=== PATIENT | female | born 1995 | race Caucasian/White ===

== ENCOUNTER 2017-04-02 20:54 | Emergency (ER) | payer OTHER ==
[2017-04-02 21:08] VITALS: BP 116/66; PULSE 71; TEMP 97.9; BMI 23.0
[2017-04-02] MEDS ORDERED: SODIUM CHLORIDE 1,000 ML IV STA (22:06)
--- NOTE | 2017-04-02 22:15 | PDOC ---
History of Present Illness - General Chief Complaint: Syncope/Near Syncope Stated Complaint: INJURY Time Seen by Provider: 04/02/17 21:46 History Source: Patient, Spouse Exam Limitations: No Limitations - History of Present Illness Initial Comments: 04/02/17 22:10 21yo Female patient with no significant past medical history presents to ED with c/o syncope w/ LOC. Patient states she had not been feeling well today, under a lot of stress, newly , states she walked into bathroom and does not remember anything after. states he was in another room and went to check on and noticed her lying on bathroom floor unconscious. He states shaking her shoulder for approximately 1 min and patient came to, but was drowsy, confused, disoriented and c/o h/a. states she was able to answer some questions correctly. Associated nausea. Denies any other complaints at this time. LNMP: March 25. Presenting Symptoms: Syncope Timing/Duration: denies: constant, getting worse, changing over time, intermittent, resolved prior to arrival, gone now, other Severity/Quality: reports: mild. denies: moderate, severe, aching, burning, dull, ingestion, pressure, sharp, stabbing, tearing, tightness, other Location: reports: other (Headache). denies: substernal, central, epigastric, shoulder, back, abdomen Chest Pain Radiation: denies: no radiation, jaw, arms, neck, shoulders, back, sternal notch, epigastric, other Activities at Onset: reports: no specific activity Prior Chest Pain/Cardiac Workup: denies: No prior chest pain, No prior cardiac workup, Non-cardiac, Angina, Cardiac Cath, Cardiolye Scan, Echocardiography, Heart Attack, Pulmonary Embolism, Stress Test, Thallium Scan, Other Modifying Factors: worse with: antacids, breathing, coughing, defecating, eating , exercise, lying down, morphine, movement, nitroglycerin, oxygen, palpation, rest, other Aspirin Received prior to arrival (Core Measure): No: no aspirin today, unknown , 81 mg x 1, 81 mg x 2, 81 mg x 3, 81 mg x 4, 325 mg x 1, provided at home, provided by EMS, provided by ED ASA Contraindications (Core Measure): No: Allergy, Other, Active Blding w/i 24 hrs., Plavix, Receiving Warfarin Past History - Travel Traveled outside of the country in the last 30 days: No Close contact w/someone who was outside of country & ill: No - Past Medical History Allergies/Adverse Reactions: Allergies Allergy/AdvReac Type Severity Reaction Status Date / Time No Known Allergies Allergy Verified 04/02/17 23:52 Home Medications: Ambulatory Orders NK [No Known Home Medication] 04/02/17 Other medical history: denies - Surgical History Appendectomy: Yes - Psycho/Social/Smoking Cessation Hx Suicidal Ideation: No Smoking History: Never smoked Cardiac Specific PMH - Complaint Specific PMHX Abdominal Aortic Aneurysm: No Angina: No Cardiac Arrhythmia: No Cardiac Stent: No GERD: No Myocardial Infarction: No Pacemaker: No Pulmonary Embolus: No Valvular Heart Disease: No Peripheral Vascular Disease: No Review of Systems - Review of Systems Able to Perform ROS?: Yes Is the patient limited Zambian proficient: No Constitutional: No: Chills, Fever HEENTM: No: Blurred Vision, Double Vision Respiratory: No: Cough, Orthopnea, Shortness of Breath, Stridor, Wheezing Cardiac (ROS): Yes: Syncope. No: Chest Pain, Lightheadedness, Palpitations, Chest Tightness ABD/GI: Yes: Nausea, Other (Abdominal Discomfort). No: Poor Appetite, Poor Fluid Intake, Vomiting, Abdominal cramping : No: Burning, Dysuria, Flank Pain, Hematuria Musculoskeletal: No: Back Pain, Neck Pain Integumentary: No: Dryness, Erythema, Rash Neurological: Yes: Headache, Unsteady Gait. No: Tingling, Tremors, Weakness, Dizziness Psychiatric: Yes: Stressors All Other Systems: Reviewed and Negative *Physical Exam - Vital Signs Last Vital Signs Temp Pulse Resp BP Pulse Ox 97.9 F 71 18 116/66 99 04/02/17 21:05 04/02/17 21:05 04/02/17 21:05 04/02/17 21:05 04/02/17 21:51 - Physical Exam General Appearance: Yes: Nourished, Appropriately Dressed. No: Apparent Distress, Mild Distress, Moderate Distress, Severe Distress HEENT: positive: EOMI, NASRIN, Normal ENT Inspection, Normal Voice, Symmetrical, TMs Normal, Pharynx Normal. negative: Pharyngeal Erythema, Tonsillar Exudate, Tonsillar Erythema, Nasal Congestion, Rhinorrhea, TM Bulging, TM Dull, TM Erythema Neck: positive: Trachea midline, Normal Thyroid, Supple. negative: Lymphadenopathy (R), Lymphadenopathy (L), Tender lateral, Tender midline Respiratory/Chest: positive: Lungs Clear, Normal Breath Sounds. negative: Chest Tender, Respiratory Distress, Accessory Muscle Use, Labored Respiration, Rapid RR, Decreased Breath Sounds, Paradoxal Breathing, Rhonchi, Stridor, Wheezing Cardiovascular: positive: Regular Rhythm, Regular Rate. negative: Edema, Tachycardia Gastrointestinal/Abdominal: positive: Normal Bowel Sounds, Soft. negative: Distended, Guarding, Rebound, Tenderness Musculoskeletal: positive: Normal Inspection. negative: CVA Tenderness Extremity: positive: Normal Capillary Refill, Normal Inspection, Normal Range of Motion. negative: Pedal Edema, Swelling, Calf Tenderness Integumentary: positive: Normal Color, Dry, Warm. negative: Erythema, Cold, Clammy, Rash, Swelling Neurologic: positive: auctioneer art II-XII NML intact, Fully Oriented, Alert, Normal Mood/ Affect, Normal Response, Motor Strength 5/5, Finger to Nose. negative: Confused , Disoriented ED Treatment Course - LABORATORY CBC & Chemistry Diagram: 04/02/17 22:47 04/02/17 22:47 - ADDITIONAL ORDERS Additional order review: Laboratory Results 04/02/17 04/02/17 23:58 22:47 Sodium 139 Potassium 4.1 Chloride 103 Carbon Dioxide 26 Anion Gap 10 BUN 5 L Creatinine 0.4 L Creat Clearance w eGFR > 60 Random Glucose 81 Calcium 8.9 Total Bilirubin 0.8 AST 14 L ALT 16 Alkaline Phosphatase 83 Total Protein 7.8 Albumin 4.3 Total Amylase 49 Lipase 93 Urine Color Yellow Urine Appearance Clear Urine pH 5.0 Urine Protein Negative Urine Glucose (UA) Negative Urine Ketones 2+ H Urine Blood Negative Urine Nitrite Negative Urine Bilirubin Negative Urine Urobilinogen Negative Ur Leukocyte Esterase Negative Urine HCG, Qual Negative 04/02/17 22:47 RBC 4.29 MCV 87.8 MCHC 34.0 RDW 13.1 MPV 9.2 Neutrophils % 57.8 Lymphocytes % 35.4 Monocytes % 5.0 Eosinophils % 1.2 Basophils % 0.6 - RADIOLOGY Radiology Studies Ordered: Category Date Time Status CERVICAL SPINE CT W/O CONTR [CT] Stat CT Scan 04/03/17 01:[address] WITHOUT CONTRAST [CT] Stat CT Scan 04/03/17 01:01 Taken CHEST PA & LAT [RAD] Stat Radiology 04/03/17 01:00 Taken - Medications Given in the ED: ED Medications Discontinued Medications Generic Name Dose Route Start Last Admin Trade Name Oral PRN Reason Stop Dose Admin Sodium Chloride 1,000 mls @ 1,000 mls/hr 04/02/17 22:06 04/02/17 22:13 Normal Saline - IV 04/02/17 23:05 1,000 mls/hr ASDIR STA Administration *DC/Admit/Observation/Transfer Diagnosis at time of Disposition: Injury of head Qualifiers: Encounter type: initial encounter Qualified Code(s): S09.90XA - Unspecified injury of head, initial encounter - Discharge Dispostion Disposition: HOME Condition at time of disposition: Improved Admit: No - Patient Instructions Printed Discharge Instructions: DI for Syncope in Adults (Fainting), DI for Closed Head Injury Additional Instructions: FOLLOW UP WITH YOUR PRIMARY CARE PROVIDER THIS WEEK FOR FURTHER EVALUATION. TYLENOL OR MOTRIN FOR PAIN NEEDED. RETURN IF SYMPTOMS WORSEN OR ANY CONCERN FOR FURTHER EVALUATION. Print Language: LUXEMBOURGISH - Post Discharge Activity Work/School Note: Back to Work
[2017-04-02 22:53] LABS: BASOPHIL 0.6 % (0-2.0); EOSINOPHIL 1.2 % (0-4.5); MCH 29.8 pg (25.7-33.7); MEAN CELL VOLUME 87.8 fl (80-96); MEAN PLT VOLUME 9.2 fl (7.5-11.1); NEUTROPHILS 57.8 % (42.8-82.8); PLATELET COUNT 303 K/MM3 (134-434); RDW 13.1 % (11.6-15.6); WHITE BLOOD COUNT 8.5 K/mm3 (4.0-10.0)
--- NOTE | 2017-04-02 23:08 | PDOC ---
*Physical Exam - Vital Signs Last Vital Signs Temp Pulse Resp BP Pulse Ox 97.9 F 71 18 116/66 100 04/02/17 21:05 04/02/17 21:05 04/02/17 21:05 04/02/17 21:05 04/02/17 21:05 ED Treatment Course - LABORATORY CBC & Chemistry Diagram: 04/02/17 22:47 04/02/17 22:47 - ADDITIONAL ORDERS Additional order review: 04/02/17 22:47 RBC 4.29 MCV 87.8 MCHC 34.0 RDW 13.1 MPV 9.2 Neutrophils % 57.8 Lymphocytes % 35.4 Monocytes % 5.0 Eosinophils % 1.2 Basophils % 0.6 - Medications Given in the ED: ED Medications Discontinued Medications Generic Name Dose Route Start Last Admin Trade Name Freq PRN Reason Stop Dose Admin Sodium Chloride 1,000 mls @ 1,000 mls/hr 04/02/17 22:06 04/02/17 22:13 Normal Saline - IV 04/02/17 23:05 1,000 mls/hr ASDIR STA Administration Medical Decision Making - Medical Decision Making 04/02/17 23:08 agree with care from DEANA Amador *DC/Admit/Observation/Transfer Diagnosis at time of Disposition: Head injury - Discharge Dispostion Disposition: HOME Condition at time of disposition: Improved - Referrals Referrals: Eric Prater MD [Primary Care Provider] - - Patient Instructions Printed Discharge Instructions: DI for Syncope in Adults (Fainting), DI for Closed Head Injury Additional Instructions: FOLLOW UP WITH YOUR PRIMARY CARE PROVIDER THIS WEEK FOR FURTHER EVALUATION. TYLENOL OR MOTRIN FOR PAIN NEEDED. RETURN IF SYMPTOMS WORSEN OR ANY CONCERN FOR FURTHER EVALUATION. Print Language: SUDANESE - Post Discharge Activity Work/School Note: Back to Work
[2017-04-02 23:18] LABS: ALBUMIN 4.3 g/dl (3.4-5.0); AMYLASE 49 U/L (25-115); ANION GAP 10 (8-16); CALCIUM 8.9 mg/dL (8.5-10.1); CO2 26 mmol/L (21-32); CREATININE 0.4 mg/dL (0.55-1.02); GLUCOSE,RANDOM 81 mg/dL (74-106); SGOT/AST 14 U/L (15-37); SGPT/ALT 16 U/L (12-78)
[2017-04-02 23:19] LABS: ALK PHOS 83 U/L (45-117); BILIRUBIN,TOTAL 0.8 mg/dL (0.2-1.0); TOT PROT 7.8 g/dl (6.4-8.2)
[2017-04-03 00:25] LABS: URINE APPEARANCE CLEAR; URINE BILIRUBIN NEGATIVE (NEGATIVE); URINE BLOOD NEGATIVE (NEGATIVE); URINE COLOR YELLOW; URINE GLUCOSE (UA) NEGATIVE (NEGATIVE); URINE KETONE 2+ (NEGATIVE); URINE LEUK ESTERASE NEGATIVE (NEGATIVE); URINE NITRITE NEGATIVE (NEGATIVE); URINE PROTEIN NEGATIVE (NEGATIVE); URINE UROBILINOGEN NEGATIVE E.U./dl (0.2-1.0)
[2017-04-03 03:26] LABS: THYROID STIMULATING HORMONE 1.88 uIU/ml (0.358-3.74)
--- NOTE | 2017-04-03 11:22 | EKG ---
Test Reason : Blood Pressure : / mmHG Vent. Rate : 072 BPM Atrial Rate : 072 BPM P-R Int : 150 ms QRS Dur : 076 ms QT Int : 374 ms P-R-T Axes : 052 064 037 degrees QTc Int : 409 ms SINUS RHYTHM WITH MARKED SINUS ARRHYTHMIA OTHERWISE NORMAL ECG NO PREVIOUS ECGS AVAILABLE Confirmed by SIRISHA CURZ, LAURA ([id number]) on 04/03/2017 11:21:47 AM Referred By: Confirmed By:LAURA GRIMM MD
== END 2017-04-03 04:02 | disposition home or self-care (01) ==
LOC: JER 20:54
PROC: 3E0337Z Introduction of Electrolytic and Water Balance Substance into Peripheral Vein, Percutaneous Approach (ICD-10-PCS; principal; 2017-04-02)
DX: R55 Syncope and collapse (principal); S09.90XA Unspecified injury of head, initial encounter; W18.39XA Other fall on same level, initial encounter; Y93.89 Activity, other specified; Y92.002 Bathroom of unspecified non-institutional (private) residence as the place of occurrence of the external cause
CPT/HCPCS: 36415; 70450-TC; 71020-TC; 72125-TC; 80053; 81003; 82150; 83690; 84443; 84703; 85025; 93005; 93010; 99283-25

== ENCOUNTER 2017-07-11 15:45 | Emergency (ER) | payer OTHER ==
[2017-07-11 15:50] VITALS: BMI 22.6
--- NOTE | 2017-07-11 16:50 | PDOC ---
History of Present Illness - General Chief Complaint: Vaginal Bleeding Stated Complaint: ABD PAIN, BLEEDING (8 WKS ) Time Seen by Provider: 07/11/17 16:11 History Source: Patient Exam Limitations: No Limitations - History of Present Illness Travel History: No Initial Comments: 07/11/17 16:44 21 year-old female presents to the ED with complaints of pressure with cramping for the past 2 weeks. Patient states has also started with vaginal spotting since yesterday accompanied with small clots here in the ER. Patient states went to see her FINANCIAL RESERVE CLERK Dr. Emmanuel last week with told her that there was a gestational sac with no heart rate. Patient states had blood work done but unsure beta hCG. Patient has no other complaints including dysuria, recent injury, or radiation of pain. Timing/Duration: reports: constant Quality: reports: mild, cramping Abdominal Pain Onset Location: reports: suprapubic Pain Radiation: reports: no radiation Activities at Onset: reports: none Aggravating Factors: improves with: None Alleviating Factors: improves with: None Past History - Travel Traveled outside of the country in the last 30 days: No - Past Medical History Allergies/Adverse Reactions: Allergies Allergy/AdvReac Type Severity Reaction Status Date / Time No Known Allergies Allergy Verified 07/13/17 10:17 Home Medications: Ambulatory Orders NK [No Known Home Medication] 04/02/17 Other medical history: none - Surgical History Appendectomy: Yes - Reproductive History Is Patient Now?: Yes (#): 1 Para: 0 Therapeutic (s) & number: No Spontaneous : 0 - Suicide/Smoking/Psychosocial Hx Smoking History: Never smoked Information on smoking cessation initiated: No Hx Alcohol Use: No Drug/Substance Use Hx: No Substance Use Type: None Abd/GI Specific PMHX - Complaint Specific PMHX GERD: No Review of Systems - Review of Systems Able to Perform ROS?: No Constitutional: No: Symptoms Reported HEENTM: No: Symptoms Reported Respiratory: No: Symptoms reported Cardiac (ROS): No: Symptoms Reported ABD/GI: Yes: Abdominal cramping : Yes: Discharge (vag bleeding) Musculoskeletal: No: Symptoms Reported Integumentary: No: Symptoms Reported Neurological: No: Symptoms reported Hematologic/Lymphatic: No: Symptoms Reported *Physical Exam - Vital Signs Last Vital Signs Temp Pulse Resp BP Pulse Ox 97.6 F 71 18 127/67 100 07/11/17 15:48 07/11/17 15:48 07/11/17 15:48 07/11/17 15:48 07/11/17 15:48 - Physical Exam General Appearance: Yes: Nourished, Appropriately Dressed. No: Apparent Distress HEENT: negative: Pale Conjunctivae Neck: positive: Supple Respiratory/Chest: positive: Lungs Clear, Normal Breath Sounds. negative: Respiratory Distress, Accessory Muscle Use Cardiovascular: positive: Regular Rhythm, Regular Rate. negative: Murmur Female Pelvic Exam: positive: cervical os closed, vaginal bleeding (dark red with no clots). negative: normal adnexa Gastrointestinal/Abdominal: positive: Soft, Tenderness (mid suprapubic) Extremity: positive: Normal Capillary Refill. negative: Pedal Edema Integumentary: positive: Normal Color, Warm, Moist Neurologic: positive: Motor Strength 5/5 (ambulatory) ED Treatment Course - LABORATORY CBC & Chemistry Diagram: 07/11/17 16:29 07/11/17 16:29 - RADIOLOGY Radiology Studies Ordered: Category Date Time Status <14WKS US [US] Stat Ultrasound 07/11/17 16:34 Ordered Medical Decision Making - Medical Decision Making 07/11/17 16:53 Pt with vag bleeding with lower abdominal pain. Pt approx 8 wks . Pt had u/s last week with gest sac by Dr. Emmanuel. Pt on exam had dark red vaginal bleeding Pt ordered for labs, urine, and ultrasound. 07/11/17 18:01 Laboratory Tests 07/11/17 07/11/17 07/11/17 16:29 16:29 16:29 WBC 9.0 Hgb 13.5 Hct 39.7 Neutrophils % 68.4 Sodium 137 Potassium 4.1 Chloride 102 Carbon Dioxide 24 Anion Gap 11 BUN 6 L Creatinine 0.4 L Random Glucose 77 Calcium 8.7 Total Bilirubin 0.6 D AST 32 D ALT 44 D Alkaline Phosphatase 78 Total Protein 7.8 Albumin 4.1 Beta HCG, Quant 4463.1 Urine Blood 1+ H Urine Nitrite Negative Ur Leukocyte Esterase Pending Urine WBC 1 07/11/17 18:44 Laboratory Tests 07/11/17 16:29 Blood Type A POSITIVE Antibody Screen Negative *DC/Admit/Observation/Transfer Diagnosis at time of Disposition: Threatened in first trimester - Discharge Dispostion Disposition: HOME Condition at time of disposition: Stable - Patient Instructions Printed Discharge Instructions: DI for Threatened , DI for Vaginal Bleeding During Additional Instructions: As discussed, you MUST return to the emergency room or see Dr. Emmanuel in 48 HOURS for a repeat blood test to ensure that your is progressing normally. If you develop any increased bleeding, worsening pain, palpitations, lightheadedness, weakness, fever, or any new or worsening symptoms, please return to the ER.
[2017-07-11 16:55] LABS: BASOPHIL 0.6 % (0-2.0); EOSINOPHIL 1.5 % (0-4.5); MCHC 34.1 g/dl (32.0-36.0); MEAN PLT VOLUME 9.4 fl (7.5-11.1); NEUTROPHILS 68.4 % (42.8-82.8); PLATELET COUNT 277 K/MM3 (134-434); RDW 13.1 % (11.6-15.6)
[2017-07-11 16:59] LABS: URINE APPEARANCE CLEAR; URINE BILIRUBIN NEGATIVE (NEGATIVE); URINE BLOOD 1+ (NEGATIVE); URINE COLOR STRAW; URINE GLUCOSE (UA) NEGATIVE (NEGATIVE); URINE KETONE NEGATIVE (NEGATIVE); URINE NITRITE NEGATIVE (NEGATIVE); URINE PROTEIN NEGATIVE (NEGATIVE); URINE UROBILINOGEN NEGATIVE mg/dL (0.2-1.0)
[2017-07-11 17:21] LABS: ALBUMIN 4.1 g/dl (3.4-5.0); ANION GAP 11 (8-16); BILIRUBIN,TOTAL 0.6 mg/dL (0.2-1.0); CALCIUM 8.7 mg/dL (8.5-10.1); CO2 24 mmol/L (21-32); CREATININE 0.4 mg/dL (0.55-1.02); GLUCOSE,RANDOM 77 mg/dL (74-106); SGPT/ALT 44 U/L (12-78); TOT PROT 7.8 g/dl (6.4-8.2)
[2017-07-11 17:37] LABS: ALK PHOS 78 U/L (45-117)
[2017-07-11 17:39] LABS: SGOT/AST 32 U/L (15-37)
[2017-07-11 17:45] LABS: URINE BACTERIA MODERATE /hpf (NONE SEEN); URINE MUCUS RARE; URINE RBC <1 /hpf (0-3); URINE WBC 1 /hpf (3-5)
[2017-07-11 19:03] LABS: URINE LEUK ESTERASE Negative (NEGATIVE)
--- NOTE | 2017-07-11 19:29 | PDOC ---
*Physical Exam - Vital Signs Last Vital Signs Temp Pulse Resp BP Pulse Ox 97.6 F 71 18 127/67 100 07/11/17 15:48 07/11/17 15:48 07/11/17 15:48 07/11/17 15:48 07/11/17 15:48 - Physical Exam Comments: 07/11/17 19:25 Sign out received by outgoing ER provider DEANA Carpio. Ancillary studies reviewed. Awaiting TV US. Ultrasound results positive for IUP approximately 5 weeks with no pole visualized. Beta hCG correlates with approximate age of IUP on US. Patient blood type A+, no indication for Rhogam. Will discharge with close w/ OB. Strict instructions given to patient to return in 48 hours for repeat beta; patient verbalized understanding and agrees to plan. ED Treatment Course - LABORATORY CBC & Chemistry Diagram: 07/11/17 16:29 07/11/17 16:29 - ADDITIONAL ORDERS Additional order review: Laboratory Results 07/11/17 07/11/17 07/11/17 16:29 16:29 16:29 Sodium 137 Potassium 4.1 Chloride 102 Carbon Dioxide 24 Anion Gap 11 BUN 6 L Creatinine 0.4 L Creat Clearance w eGFR > 60 Random Glucose 77 Calcium 8.7 Total Bilirubin 0.6 D AST 32 D ALT 44 D Alkaline Phosphatase 78 Total Protein 7.8 Albumin 4.1 Beta HCG, Quant 4463.1 Urine Color Straw Urine Appearance Clear Urine pH 7.0 D Urine Protein Negative Urine Glucose (UA) Negative Urine Ketones Negative Urine Blood 1+ H Urine Nitrite Negative Urine Bilirubin Negative Urine Urobilinogen Negative Urine RBC <1 Urine WBC 1 Ur Epithelial Cells Rare Urine Bacteria Moderate Urine Mucus Rare Blood Type A POSITIVE Antibody Screen Negative 07/11/17 16:29 RBC 4.51 MCV 88.0 MCHC 34.1 RDW 13.1 MPV 9.4 Neutrophils % 68.4 Lymphocytes % 23.7 D Monocytes % 5.8 Eosinophils % 1.5 Basophils % 0.6 *DC/Admit/Observation/Transfer Diagnosis at time of Disposition: Threatened in first trimester - Discharge Dispostion Disposition: HOME Condition at time of disposition: Stable Admit: No - Patient Instructions Printed Discharge Instructions: DI for Threatened , DI for Vaginal Bleeding During Additional Instructions: As discussed, you MUST return to the emergency room or see Dr. Emmanuel in 48 HOURS for a repeat blood test to ensure that your is progressing normally. If you develop any increased bleeding, worsening pain, palpitations, lightheadedness, weakness, fever, or any new or worsening symptoms, please return to the ER.
[2017-07-11 19:51] VITALS: BP 135/80; PULSE 78; TEMP 98.3
== END 2017-07-11 19:51 | disposition home or self-care (01) ==
LOC: JER 15:45
DX: O20.0 Threatened abortion (principal); O34.81 Maternal care for other abnormalities of pelvic organs, first trimester; N83.12 Corpus luteum cyst of left ovary; Z3A.01 Less than 8 weeks gestation of pregnancy
CPT/HCPCS: 36415; 76801-TC; 80053; 81003; 81015; 84702; 85025; 86850; 86900; 86901; 87086; 99283-25

== ENCOUNTER 2017-07-13 10:12 | Emergency (ER) | payer OTHER ==
[2017-07-13 10:20] VITALS: BP 121/75; PULSE 72; TEMP 98.6; BMI 22.6
--- NOTE | 2017-07-13 10:45 | PDOC ---
History of Present Illness - General Chief Complaint: Revisit, Lab Variance Stated Complaint: REVISIT, FOLLOW UP Time Seen by Provider: 07/13/17 10:21 History Source: Patient Exam Limitations: No Limitations - History of Present Illness Initial Comments: 07/13/17 10:45 CHIEF COMPLAINT: Vaginal bleeding HISTORY OF PRESENT ILLNESS: This is an otherwise healthy 21 year old female seen here on 07/11 with 2 weeks of vaginal bleeding and cramping. Bhcg at that time was 4463, u/s showed irregular gestational sac with yolk sac but without pole. The patient returns for followup studies today. She has not had any cramping but did saturate one pad with blood overnight and believes she passed some tissue this morning. She denies dizziness, lightheadedness, or any other symptoms. V/s on arrival are all within normal limits. REVIEW OF SYSTEMS: GENERAL/CONSTITUTIONAL: No fever or chills. No weakness. No weight change. CARDIOVASCULAR: No chest pain or palpitations. RESPIRATORY: No cough, wheezing, or shortness of breath. GASTROINTESTINAL: No nausea, vomiting, diarrhea or constipation. GENITOURINARY: See HPI. MUSCULOSKELETAL: No joint or muscle swelling or pain. No neck or back pain. SKIN: No rash or easy bruising. NEUROLOGIC: No headache, vertigo, loss of consciousness, or loss of sensation. HEMATOLOGIC/LYMPHATIC: No anemia, easy bleeding, or history of blood clots. ALLERGIC/IMMUNOLOGIC: No hives or skin allergy. No latex allergy. PHYSICAL EXAM: GENERAL: The patient is awake, alert, and fully oriented, in no acute distress. ENT: Pupils equal, round and reactive to light, extraocular movements intact, sclera anicteric, conjunctiva clear. Neck supple. LUNGS: Clear to auscultation bilaterally. Normal excursion. No respiratory distress or use of accessory muscles. CV: RRR, S1/S2, no MRG. Cap refill < 2 sec. ABDOMEN: Soft, non-distended, non-tender. EXTREMITIES: Normal range of motion, no edema. NEUROLOGICAL: Normal speech, normal gait. CN II-XII grossly intact. PSYCH: Normal mood, normal affect. SKIN: Warm, dry, normal turgor, no rashes or lesions noted. Past History - Past Medical History Allergies/Adverse Reactions: Allergies Allergy/AdvReac Type Severity Reaction Status Date / Time No Known Allergies Allergy Verified 07/13/17 10:17 Home Medications: Ambulatory Orders NK [No Known Home Medication] 04/02/17 - Surgical History Appendectomy: Yes - Reproductive History (#): 1 Para: 0 Therapeutic (s) & number: No Spontaneous : 0 - Suicide/Smoking/Psychosocial Hx Smoking History: Never smoked Have you smoked in the past 12 months: No Information on smoking cessation initiated: No Hx Alcohol Use: No Drug/Substance Use Hx: No Substance Use Type: None *Physical Exam - Vital Signs Last Vital Signs Temp Pulse Resp BP Pulse Ox 98.6 F 72 18 121/75 100 07/13/17 10:17 07/13/17 10:17 07/13/17 10:17 07/13/17 10:17 07/13/17 10:17 ED Treatment Course - RADIOLOGY Radiology Studies Ordered: Category Date Time Status <14WKS US [US] Stat Ultrasound 07/13/17 10:23 Ordered Medical Decision Making - Medical Decision Making 07/13/17 12:33 A/P: 21 year old female presenting for followup of threatened ab. -Bhcg today is 635 -U/s shows no IUP -Patient has followup OB appointment tomorrow and was provided with copies of results -Return precautions reviewed *DC/Admit/Observation/Transfer Diagnosis at time of Disposition: Miscarriage - Discharge Dispostion Disposition: HOME Condition at time of disposition: Stable Admit: No - Referrals Referrals: [facility] [Provider Group] - Patient Instructions Printed Discharge Instructions: DI for Miscarriage Additional Instructions: Your hormone level and ultrasound today are consistent with miscarriage. Expect additional bleeding and pain. Take ibuprofen as needed for cramping. Follow up with your dance hall hostess or the [address] [place] [address] clinic (contact information enclosed). Return here for heavy bleeding (more than one pad per hour) or any other concerning symptoms. - Post Discharge Activity Forms/Work/School Notes: Back to Work
== END 2017-07-13 12:10 | disposition home or self-care (01) ==
LOC: JERFT 10:12
DX: O02.1 Missed abortion (principal)
CPT/HCPCS: 36415; 76801-TC; 84702; 99281-25

== ENCOUNTER → 2018-06-29 | Emergency (ER) | payer OTHER ==
[~2018-06-29] MED LIST: AMPICILLIN - 2 GM in SODIUM CHLORIDE 100 ML IVPB ONE; AMPICILLIN SODIUM 2 GM VIAL ONE; DEXTROSE 5%-LACTATED RINGERS 500 ML IV ONE; ELECTROLYTE-148 SOLN 1,000 ML IV SCH; ONDANSETRON 4 MG/2 ML VIAL IVPB ONE; ONDANSETRON 4 MG/2 ML VIAL ONE
[2018-06-29 22:03] VITALS: BMI 24.5
[2018-06-29 23:57] VITALS: BP 123/79; PULSE 78; TEMP 97.8
[2018-06-30 00:01] LABS: URINE APPEARANCE SLCLOUDY; URINE BILIRUBIN NEGATIVE (<2.0 mg/dL); URINE COLOR LTYELLOW; URINE GLUCOSE (UA) NEGATIVE (NEGATIVE); URINE KETONE 1+ (NEGATIVE); URINE NITRITE NEGATIVE (NEGATIVE); URINE PROTEIN NEGATIVE (NEGATIVE); URINE UROBILINOGEN NEGATIVE mg/dL (0.2-1.0)
--- NOTE | 2018-06-30 00:08 | PN ---
Ante-Partal Exam - Subjective Subjective: Pt with c/o lower abd pain and contractions no ruqq pain, bleeding or rom Vital Signs: Vital Signs Temperature 97.8 F 06/29/18 22:30 Pulse Rate 78 06/29/18 22:30 Respiratory Rate 20 06/29/18 22:30 Blood Pressure 123/79 06/29/18 22:30 O2 Sat by Pulse Oximetry (%) 100 06/29/18 22:00 Bleeding: No Headache: No Visual changes: No Right upper quadrant pain: No - Contractions Contractions: Yes Regularity: Regular Intensity: Moderate Monitor Mode: External - Exam during Labor Heart Rate: 140 Category: I Monitor Accelerations: Present Monitor Decelerations: None Exam: Vaginal Dilatation (cm): closed Effacement (%): long Amniotic Membrane Status: Intact Presentation: Vertex - Intrapartum Hemorrhage Risk Risk Score: 0 Risk Level: Low Risk - Assessment/Plan Assessment/Plan: 22 yo EGA 27 weeks who came in for abd pain and contractions pt with suprapubic pain contractions IUP at 27 week ro UTI Plan IV amp USG/BPP IV hydration
[2018-06-30 00:25] LABS: URINE LEUK ESTERASE 3+ (NEGATIVE)
[2018-06-30 00:26] LABS: EPI CELLS RARE /HPF (FEW); URINE BACTERIA RARE /hpf (NONE SEEN); URINE MUCUS RARE
--- NOTE | 2018-06-30 07:04 | PN ---
Ante-Partal Exam - Subjective Subjective: Pt doing well no pain no ROM Vital Signs: Vital Signs Temperature 97.8 F 06/29/18 22:30 Pulse Rate 78 06/29/18 22:30 Respiratory Rate 20 06/29/18 22:30 Blood Pressure 123/79 06/29/18 22:30 O2 Sat by Pulse Oximetry (%) 100 06/29/18 22:21 Headache: No Visual changes: No Right upper quadrant pain: No - Contractions Contractions: No - Exam during Labor Variability: Moderate Category: I Monitor Accelerations: Present Monitor Decelerations: None Amniotic Membrane Status: Intact Presentation: Vertex Station: -2 - Intrapartum Hemorrhage Risk Risk Score: 0 Risk Level: Low Risk - Assessment/Plan Assessment/Plan: Abd pain none presently Plan DC home
== END | disposition home or self-care (01) ==
LOC: JER 21:55
DX: O26.892 Other specified pregnancy related conditions, second trimester (principal); R10.30 Lower abdominal pain, unspecified; Z3A.27 27 weeks gestation of pregnancy
CPT/HCPCS: 76819-TC; 81003; 81015; 99282-25

== ENCOUNTER 2018-09-19 03:10 | Inpatient (IN) | payer OTHER ==
[2018-09-19] MEDS ORDERED: DEXTROSE 5%-LACTATED RINGERS 500 ML IV ONE (03:45)
[2018-09-19] MEDS ORDERED: CITRIC ACID/SODIUM CITRATE 30 ML UNIT-DOSE CUP PO ONE (04:40)
[2018-09-19] MEDS ORDERED: ELECTROLYTE-148 SOLN 500 ML IV ONE ×2 (04:40→05:10)
[2018-09-19] MEDS ORDERED: DEXTROSE 5%-LACTATED RINGERS 1,000 ML IV SCH (04:45)
[2018-09-19 05:13] VITALS: BMI 26.6
[2018-09-19] MEDS ORDERED: OXYTOCIN 20 UNITS in 0.9% NS 20 UNIT/1,000 ML INFUS.BAG IV ONE ×2 (05:40→07:22)
[2018-09-19] MEDS ORDERED: morphine SULFATE/Preservative Free 0.5 MG/ML (1cc Syringe) ONE (05:43)
[2018-09-19] MEDS ORDERED: ePHEDrine SULFATE 50 MG/1 ML AMPULE ONE (05:43)
[2018-09-19] MEDS ORDERED: ceFAZolin SODIUM 1 GM VIAL ONE (05:55)
[2018-09-19] MEDS ORDERED: ONDANSETRON 4 MG/2 ML VIAL IVPUSH PRN (06:48)
--- NOTE | 2018-09-19 06:54 | HP ---
Past Medical History - Primary Care Physician PCP:: Dasia Emmanuel - Admission Chief Complaint: labor with breech presentation with uterine septum History of Present Illness: 22 yo EDC 09/27/18 EGA 38.4 week with breech presentation in labor spont ab x 1 History Source: Patient Limitations to Obtaining History: No Limitations - Past Medical History ...: 2 ...Para: 0 ...Term: 0 ...: 0 ...Spon : 1 ...Induced : 0 ...Multiple Gestation: 0 ...LMP: 12/22/17 ... Weeks Gestation by Dates: 38.4 ...EDC by Dates: 09/28/18 ...EDC by Sono: 09/28/18 - Past Surgical History Past Surgical History: Yes: Appendectomy Hx Myomectomy: No Hx Transabdominal Cerclage: No - Smoking History Smoking history: Never smoked Have you smoked in the past 12 months: No - Alcohol/Substance Use Hx Alcohol Use: No History of Substance Use: reports: None - Social History Usual Living Arrangement: Yes: With Spouse History of Recent Travel: No Home Medications - Allergies Allergies/Adverse Reactions: Allergies Allergy/AdvReac Type Severity Reaction Status Date / Time No Known Allergies Allergy Verified 09/19/18 04:05 - Home Medications Home Medications: Ambulatory Orders Vitamins (Sjr) - 1 tab PO DAILY 08/22/18 Review of Systems - Review of Systems Constitutional: reports: No Symptoms Eyes: reports: No Symptoms HENT: reports: No Symptoms Neck: reports: No Symptoms Cardiovascular: reports: No Symptoms Respiratory: reports: No Symptoms Gastrointestinal: reports: Abdominal Pain Genitourinary: reports: No Symptoms Breasts: reports: No Symptoms Reported Musculoskeletal: reports: No Symptoms Integumentary: reports: No Symptoms Neurological: reports: No Symptoms Endocrine: reports: No Symptoms Hematology/Lymphatic: reports: No Symptoms Psychiatric: reports: No Symptoms Physical Exam - Maternity Vital Signs: Vital Signs Temperature 97.7 F 09/19/18 05:06 Pulse Rate 69 09/19/18 05:06 Respiratory Rate 20 09/19/18 05:06 Blood Pressure 128/82 09/19/18 05:06 O2 Sat by Pulse Oximetry (%) Constitutional: Yes: Well Nourished, No Distress HENT: Yes: WNL Neck: Yes: WNL Cardiovascular: Yes: WNL, Regular Rate and Rhythm Lungs: Clear to auscultation Breast(s): Yes: WNL - Abdominal Exam/OB Fundal Height: 39 Number of Fetuses: Single Presentation: Breech Contractions: Yes Regularity: Regular Intensity: Mild/Mod Monitor Mode: External Category: I Decelerations: None - Vaginal Exam/OB Dilatation (cm): 1 Amniotic Membrane Status: Intact Presentation: Vertex/Position - Physical Exam Musculoskeletal: Yes: WNL Extremities: Yes: WNL Edema: No Integumentary: Yes: WNL Psychiatric: Yes: WNL, Alert, Oriented Hemorrhage Risk Assessment - Risk Factors Risk Score: 1 Risk Level: Medium Risk Problem List - Problems (1) Breech presentation Code(s): O32.1XX0 - MATERNAL CARE FOR BREECH PRESENTATION, UNSP (2) 38 weeks gestation of Code(s): Z3A.38 - 38 WEEKS GESTATION OF Assessment/Plan iup at 38.5 week Hx spontaneous ab breech presentation labor uterine septum Plan Section notify peds notify anesthesia
[2018-09-19] MEDS ORDERED: diphenhydrAMINE HCL 25 MG CAPSULE (FP) PO PRN (06:55)
[2018-09-19] MEDS ORDERED: BENZOCAINE 20% 57 GM BOTTLE TP PRN (06:55)
[2018-09-19] MEDS ORDERED: BENZOCAINE 28 GM HEMORRHOIDAL OINTMENT PR PRN (06:55)
[2018-09-19] MEDS ORDERED: METHYLERGONOVINE MALEATE 0.2 MG/1 ML AMP IM PRN (06:55)
[2018-09-19] MEDS ORDERED: HYDROmorphone HCL 2 MG TABLET PO PRN (06:55)
[2018-09-19] MEDS ORDERED: WITCH HAZEL 50% (TUCKS) 40 PAD/JAR PAD TP PRN (06:55)
[2018-09-19] MEDS ORDERED: ELECTROLYTE-148 SOLN 1,000 ML IV SCH (07:00)
--- NOTE | 2018-09-19 07:02 | OP ---
Operative Note - Note: Operative Date: 09/19/18 Pre-Operative Diagnosis: Breech presentation. 38 weeks. Uterine septum. Active labor Operation: Low transverse Section Findings: live female infant Post-Operative Diagnosis: Other (Uterine septum mostly on left side) Surgeon: Una Jorgensen Flyer Repairer: Delgado Martinez Anesthesia: Spinal Estimated Blood Loss (mls): 600 Operative Report Dictated: Yes
[2018-09-19] MEDS ORDERED: OXYTOCIN 20 UNITS in 0.9% NS 20 UNIT/1,000 ML INFUS.BAG IV SCH (07:15)
--- NOTE | 2018-09-19 07:26 | OP ---
DATE OF OPERATION: 09/19/2018 PREOPERATIVE DIAGNOSIS: Breech presentation, intrauterine at 38 weeks, in active labor. OPERATION: Low transverse section. POSTOPERATIVE DIAGNOSIS: Live female . SURGEON: Ernie Jorgensen MD PERFORMING ARTIST: TRUMAN Perdue ANESTHESIOLOGIST: Jonny Singh DO ANESTHESIA: Spinal. ESTIMATED BLOOD LOSS: 600 mL. PROCEDURE: Patient was taken to the operating room, placed in the supine position, prepped and draped in the usual sterile fashion. Timeout was performed in accordance with hospital regulation. A Pfannenstiel skin incision was made with a scalpel. Cautery was then used to go through the layers of the abdominal wall to the fascia. Fascia was cut in the midline and cautery was used to open the fascia in smiling fashion. Heydi was then used to bluntly and sharply dissect the rectus muscles. Muscles split in the midline. Peritoneal cavity was then entered, carried up and down. Bladder retractor was then placed. Scalpel was then used to make a low transverse uterine incision. Incision was carried upward using bandage scissors. A live female was delivered in fely breech extraction. Nose and mouth suction performed. Shoulders were delivered without difficulty. was handed to nurse. 9, 10. Cord blood obtained. Cord pH obtained. Cord blood sampling obtained. Placenta was manually extracted from the uterus. Uterus exteriorized, cleaned with clean lap pads. Uterus was noted in the endometrium to have a uterine septum occupying more to the left side of the uterus. Tubes and ovaries were noted to be normal. Uterine incision closed using 0 Biosyn suture 1st layer continuous locking, 2nd layer imbricating the 1st layer. Hemostasis was achieved using figure-of-8 sutures. Uterus interiorized. Abdominal cavity cleaned with clean lap pads. The peritoneum closed using 0 Biosyn suture. Fascia was then closed using 0 Vicryl suture in 2 parts continuous. Skin was then closed using 3-0 Vicryl in subcuticular fashion. Wound was washed and dressed. Patient tolerated procedure well. Estimated blood loss again 600 mL. Findings were postoperatively uterine septum, preoperatively also uterine septum. ERNIE JORGENSEN M.D. [id number]
[2018-09-19] MEDS ORDERED: ACETAMINOPHEN INJECTION 100 ML IVPB ONE (07:27)
[2018-09-19] MEDS ORDERED: IBUPROFEN 800 MG/8 ML IJ IVPB PRN (07:47)
[2018-09-19] MEDS ORDERED: ACETAMINOPHEN 1000 MG/100 ML VIAL (NON FORMULARY) IVPB ONE (08:00)
[2018-09-19] MEDS ORDERED: IBUPROFEN 800 MG/8 ML IJ IVPB ONE (08:30)
[2018-09-19] MEDS: IBUPROFEN 800 MG/8 ML IJ IVPB PRN ×2 (08:40→18:15)
[2018-09-19 09:25] LABS: BASO % 0.2 % (0-2.0); EOS % 0.1 % (0-4.5); HEMATOCRIT 30.1 % (32.4-45.2); HEMOGLOBIN 9.7 GM/dL (10.7-15.3); LYMPH % 7.3 % (8-40); MCH 26.6 pg (25.7-33.7); MCHC 32.1 g/dl (32.0-36.0); MEAN CELL VOLUME 82.9 fl (80-96); MEAN PLT VOLUME 10.1 fl (7.5-11.1); MONO % 4.7 % (3.8-10.2); NEUT % 87.7 % (42.8-82.8); PLATELET COUNT 191 K/MM3 (134-434); RBC 3.63 M/mm3 (3.60-5.2); RDW 14.6 % (11.6-15.6); WHITE BLOOD COUNT 14.9 K/mm3 (4.0-10.0)
[2018-09-20] MEDS: IBUPROFEN 800 MG/8 ML IJ IVPB PRN (01:31)
[2018-09-20] MEDS ORDERED: oxyCODONE HCL 5 MG TABLET PO PRN ×2 (06:55)
[2018-09-20] MEDS ORDERED: BISACODYL 10 MG SUPP.RECT PR PRN (06:55)
[2018-09-20 07:44] LABS: HEMATOCRIT 24.6 % (32.4-45.2); HEMOGLOBIN 8.5 GM/dL (10.7-15.3); MCH 28.3 pg (25.7-33.7); MCHC 34.5 g/dl (32.0-36.0); MEAN CELL VOLUME 82.1 fl (80-96); MEAN PLT VOLUME 10.4 fl (7.5-11.1); PLATELET COUNT 184 K/MM3 (134-434); RBC 2.99 M/mm3 (3.60-5.2)
[2018-09-20] MEDS: IBUPROFEN 600 MG TABLET (FP) PO PRN ×2 (11:01→18:43)
[2018-09-20] MEDS: ACETAMINOPHEN 325 MG TABLET (FP) PO PRN ×2 (11:02→18:44)
[2018-09-20] MEDS: SIMETHICONE 80 MG TAB.CHEW (FP) PO PRN (18:44)
--- NOTE | 2018-09-20 22:15 | PN ---
Progress Note (SOAP) - Current Medications Current Medications: Active Medications Acetaminophen (Tylenol -) 650 mg PO Q4H PRN PRN Reason: FEVER Last Admin: 09/20/18 18:44 Dose: 650 mg Benzocaine (Americaine 20% [place] -) 1 spray TP PRN PRN PRN Reason: Pain - Topical Benzocaine (Americaine Ointment -) 1 applic [place] PRN PRN PRN Reason: Pain - Topical Bisacodyl (Dulcolax Suppository -) 10 mg [place] PRN PRN PRN Reason: CONSTIPATION Last Admin: 09/20/18 11:11 Dose: 10 mg Diphenhydramine HCl (Benadryl -) 25 mg PO Q6H PRN PRN Reason: FOR ITCHING Ibuprofen (Motrin -) 600 mg PO Q4H PRN PRN Reason: FEVER Last Admin: 09/20/18 18:43 Dose: 600 mg Influenza Virus Vaccine Quadrival (Fluarix Quad [id number] Syringe) 60 mcg IM ONCE ONE Stop: 09/21/18 10:01 Methylergonovine Maleate (Methergine Injection -) 0.2 mg IM Q4H PRN PRN Reason: EXCESSIVE BLEEDING Ondansetron HCl (Zofran Injection) 4 mg IVPUSH Q4H PRN PRN Reason: NAUSEA Oxycodone HCl (Roxicodone -) 5 mg PO Q4H PRN PRN Reason: PAIN LEVEL 1-5 Oxycodone HCl (Roxicodone -) 10 mg PO Q4H PRN PRN Reason: PAIN LEVEL 6-10 Senna/Docusate Sodium (Pericolace -) 2 tablet PO HS PRN PRN Reason: CONSTIPATION Simethicone (Mylicon -) 80 mg PO Q4H PRN PRN Reason: GAS Last Admin: 09/20/18 18:44 Dose: 80 mg Witch Erum/Glycerin (Tucks Pads -) 1 pad TP PRN PRN PRN Reason: Pain - Topical - Objective Vital Signs: Vital Signs Temperature 98.3 F 09/20/18 14:00 Pulse Rate 107 H 09/20/18 18:00 Respiratory Rate 18 09/20/18 18:00 Blood Pressure 120/71 09/20/18 18:00 O2 Sat by Pulse Oximetry (%) Constitutional: Yes: Well Nourished, No Distress HENT: Yes: WNL Neck: Yes: WNL Cardiovascular: Yes: WNL Respiratory: Yes: WNL Gastrointestinal: Yes: WNL, Normal Bowel Sounds, Soft ...Rectal Exam: Yes: WNL Genitourinary: Yes: WNL ....Post : Yes: Uterus firm, Uterus non-tender Breast(s): Yes: WNL Musculoskeletal: Yes: WNL Extremities: Yes: WNL Edema: No Wound/Incision: Yes: Steri Strips, Open to air Neurological: Yes: WNL, Alert, Oriented Labs Lab Results: CBC, BMP 09/20/18 07:02 Problem List - Problems (1) Breech presentation Code(s): O32.1XX0 - MATERNAL CARE FOR BREECH PRESENTATION, UNSP (2) 38 weeks gestation of Code(s): Z3A.38 - 38 WEEKS GESTATION OF Assessment/Plan SP Section due to breech POD 1 Plan OOB Continue present mangement
--- NOTE | 2018-09-21 07:10 | PN ---
Progress Note (SOAP) - Subjective Chief Complaint: Pt doing well - Current Medications Current Medications: Active Medications Acetaminophen (Tylenol -) 650 mg PO Q4H PRN PRN Reason: FEVER Last Admin: 09/20/18 18:44 Dose: 650 mg Benzocaine (Americaine 20% [place] -) 1 spray TP PRN PRN PRN Reason: Pain - Topical Benzocaine (Americaine Ointment -) 1 applic [place] PRN PRN PRN Reason: Pain - Topical Bisacodyl (Dulcolax Suppository -) 10 mg [place] PRN PRN PRN Reason: CONSTIPATION Last Admin: 09/20/18 11:11 Dose: 10 mg Diphenhydramine HCl (Benadryl -) 25 mg PO Q6H PRN PRN Reason: FOR ITCHING Ibuprofen (Motrin -) 600 mg PO Q4H PRN PRN Reason: FEVER Last Admin: 09/20/18 18:43 Dose: 600 mg Influenza Virus Vaccine Quadrival (Fluarix Quad [id number] Syringe) 60 mcg IM ONCE ONE Stop: 09/21/18 10:01 Methylergonovine Maleate (Methergine Injection -) 0.2 mg IM Q4H PRN PRN Reason: EXCESSIVE BLEEDING Oxycodone HCl (Roxicodone -) 5 mg PO Q4H PRN PRN Reason: PAIN LEVEL 1-5 Oxycodone HCl (Roxicodone -) 10 mg PO Q4H PRN PRN Reason: PAIN LEVEL 6-10 Senna/Docusate Sodium (Pericolace -) 2 tablet PO HS PRN PRN Reason: CONSTIPATION Simethicone (Mylicon -) 80 mg PO Q4H PRN PRN Reason: GAS Last Admin: 09/20/18 18:44 Dose: 80 mg Witch Erum/Glycerin (Tucks Pads -) 1 pad TP PRN PRN PRN Reason: Pain - Topical - Objective Vital Signs: Vital Signs Temperature 98.0 F 09/20/18 22:00 Pulse Rate 91 H 09/20/18 22:00 Respiratory Rate 18 09/20/18 22:00 Blood Pressure 116/69 09/20/18 22:00 O2 Sat by Pulse Oximetry (%) Constitutional: Yes: Well Nourished, No Distress Cardiovascular: Yes: WNL Respiratory: Yes: WNL Gastrointestinal: Yes: WNL, Normal Bowel Sounds, Soft ....Post : Yes: Uterus firm, Uterus non-tender Musculoskeletal: Yes: WNL Extremities: Yes: WNL Edema: No Neurological: Yes: WNL, Alert, Oriented Labs Lab Results: CBC, BMP 09/20/18 07:02 Problem List - Problems (1) Breech presentation Code(s): O32.1XX0 - MATERNAL CARE FOR BREECH PRESENTATION, UNSP Assessment/Plan SP Section due to breech in active labor POD Plan OOB Continue present mangement
[2018-09-21] MEDS: SIMETHICONE 80 MG TAB.CHEW (FP) PO PRN (09:29)
[2018-09-21] MEDS: ACETAMINOPHEN 325 MG TABLET (FP) PO PRN ×2 (09:29→18:44)
[2018-09-21] MEDS: IBUPROFEN 600 MG TABLET (FP) PO PRN ×2 (09:29→18:44)
[2018-09-21] MEDS ORDERED: FLU VACCINE QUAD 60 MCG/0.5 ML (MDV 18-19) IM ONE (10:00)
[2018-09-21] MEDS ORDERED: SENNOSIDES/DOCUSATE COMBO (SENNA PLUS) TABLET (UD) PO PRN (22:00)
[2018-09-22] MEDS: ACETAMINOPHEN 325 MG TABLET (FP) PO PRN ×3 (02:11→14:40)
[2018-09-22] MEDS: IBUPROFEN 600 MG TABLET (FP) PO PRN ×3 (02:11→14:40)
[2018-09-22] MEDS: SIMETHICONE 80 MG TAB.CHEW (FP) PO PRN ×3 (02:11→14:39)
[2018-09-22 08:17] LABS: HEMATOCRIT 25.8 % (32.4-45.2); HEMOGLOBIN 8.9 GM/dL (10.7-15.3); MCH 28.5 pg (25.7-33.7); MCHC 34.5 g/dl (32.0-36.0); MEAN CELL VOLUME 82.6 fl (80-96); MEAN PLT VOLUME 9.1 fl (7.5-11.1); PLATELET COUNT 225 K/MM3 (134-434); RBC 3.13 M/mm3 (3.60-5.2); RDW 15.2 % (11.6-15.6); WHITE BLOOD COUNT 7.7 K/mm3 (4.0-10.0)
--- NOTE | 2018-09-22 09:37 | DS ---
Physical Exam-DREDGE DECKHAND Vital Signs: Vital Signs Temperature 99.0 F 09/21/18 21:40 Pulse Rate 92 H 09/21/18 21:40 Respiratory Rate 18 09/21/18 21:40 Blood Pressure 119/77 09/21/18 21:40 O2 Sat by Pulse Oximetry (%) Constitutional: Yes: Well Nourished Eyes: Yes: Conjunctiva Clear HENT: Yes: Atraumatic Neck: Yes: Supple Cardiovascular: Yes: Regular Rate and Rhythm Respiratory: Yes: Regular Gastrointestinal: Yes: Normal Bowel Sounds External Genitalia: Yes: Normal Vaginal Exam: Yes: Normal Cervix: Yes: Normal Uterus: Yes: Firm Wound/Incision: Yes: Clean/Dry, Sutures Intact Neurological: Yes: Alert, Oriented Psychiatric: Yes: Alert, Oriented Labs: CBC, BMP 09/22/18 07:49 Delivery - Delivery Type of Anesthesia: Spinal Episiotomy/Laceration: None EBL (cc): 600 Delivery, Single - Stages of Labor Date 1st Stage Initiatied: 09/19/18 Time 1st Stage Initiated: 02:30 Date of Delivery: 09/19/18 Time of Delivery: 06:04 Time Placenta Delivered: 06:05 - Condition of Cryptologic Support Specialist/Primary Care Provider Present: Yes Name: Thom Piña Infant Gender: Female Weight: 6 lb 13 oz Total Hours ROM (Hrs/Mins): 2minutes - 1 Minute Total Score: 9 5 Minutes Total Score: 10 - [place] Feeding Plan Initial Plan: Elected not to breastfeed exclusively throughout hospitalization Discharge Summary Reason For Visit: SECTION Current Active Problems 38 weeks gestation of (Acute) Breech presentation (Acute) Procedures: Principal: Primary Low Transverse Hospital Course: Routine post op care Condition: Good - Instructions Diet, Activity, Other Instructions: Physical activity Resume your normal everyday activity as tolerated no heavy lifting or exercise until seen by your surgeon. You may walk unlimited tommie of and climb stairs. You may resume driving the car when you feel safe and comfortable behind the wheel. No sexual activity as instructed. Wound care If you have a bandage, leave it on, and keep dry for 48-72 hours. After that time discard the outer bandage. If they are tapes on the skin under the out of bandage leave them in place. They will peel off in the next 7 to 10 days. Do Not Peel them off. You may shower the day after surgery. If there are tapes present on the skin, you may shower over them. Diet There are no dietary restrictions. Eat healthy, high-fiber foods. Drink 6 to 8 glasses of liquid each day. This will assist in keeping your bowels are regular. Pain management You may take Tylenol or acetaminophen or Ibuprofen (for example, Motrin, Advil etc.) from my pain prescription medication is ordered should be taken as prescribed for moderate to severe pain. Call MD for any of the following: Severe pain not relieved by medication Fever of 101 or higher Excessive bleeding or drainage on dressing Inability to urinate Disposition: HOME - Home Medications Comprehensive Discharge Medication List: Ambulatory Orders Vitamins (Sjr) - 1 tab PO DAILY 08/22/18
[2018-09-22 10:20] VITALS: BP 121/75; PULSE 91; TEMP 98
--- NOTE | 2018-09-25 19:31 | PATH ---
Surgical Pathology Report Patient Name: CARO HOLLAND [facility]. Rec. #: [id number] /Age/Gender: 1995 (Age: 22) / F Account: [id number] Location: [facility] OBS/RESTAURANT ASSOCIATE Taken: 09/19/2018 Received: 09/21/2018 Reported: 09/25/2018 Physicians: Una Jorgensen M.D. Specimen(s) Received PLACENTA Clinical History , 38.5 weeks in labor Uterine septum/bicornuate uterus Term , breech presentation Final Diagnosis PLACENTA, SECTION: 396 G THIRD TRIMESTER PLACENTA WITH TRIVASCULAR UMBILICAL CORD AND UNREMARKABLE PLACENTAL MEMBRANES. Electronically Signed Ping Montejo M.D. Gross Description The specimen is received fresh labeled placenta and is a 396 gram, 17.0 x 12.5 x 2.8 cm. placenta with attached membranes and umbilical cord. The attached membranes are espinal, translucent with focal opacities and insert marginally. The umbilical cord measures 15 cm. in length and averages 0.8 cm. in diameter. The cord inserts eccentrically, 2 cm. to the nearest margin. No true knots or strictures are identified. Cut surface of the umbilical cord reveals 3 vessels. The surface is herrmann-blue with minimal fibrin deposition and appropriate caliber vessels. The maternal surface is red-brown with focal defects. Sectioning reveals red-brown, spongy parenchyma. No lesions are identified. Briar Cutter sections are submitted in three cassettes as follows: 1- membrane rolls and umbilical cord; 2-3- full thickness sections of placenta. 09/24/2018 [facility]/2018
== END 2018-09-22 14:50 | disposition home or self-care (01) | DRG 788 ==
LOC: JDEL 03:10 → JLDR 04:40 → J3W 09:00
PROVIDERS: ADMIT Obstetrics & Gynecology; ATTEND Obstetrics & Gynecology
PROC: 10D00Z1 Extraction of Products of Conception, Low, Open Approach (ICD-10-PCS; principal; 2018-09-19)
DX: O32.1XX0 Maternal care for breech presentation, not applicable or unspecified (principal); Z3A.38 38 weeks gestation of pregnancy; Z37.0 Single live birth
CPT/HCPCS: 36415; 85025; 85027; 86850; 86900; 86901; 88307-TC; 90686; G0008; J0131

== ENCOUNTER 2020-09-17 20:15 | Inpatient (IN) | payer OTHER ==
[2020-09-17 22:20] VITALS: BMI 27.8
[2020-09-17 22:21] LABS: BASO % 0.3 % (0-2.0); EOS % 0.5 % (0-4.5); HEMATOCRIT 33.9 % (32.4-45.2); HEMOGLOBIN 11.2 GM/dL (10.7-15.3); MCH 28.8 pg (25.7-33.7); MEAN CELL VOLUME 87.3 fl (80-96); MEAN PLT VOLUME 10.5 fl (7.5-11.1); MONO % 6.9 % (3.8-10.2); NEUT % 71.3 % (42.8-82.8); PLATELET COUNT 208 K/MM3 (134-434); RBC 3.89 M/mm3 (3.60-5.2); RDW 14.1 % (11.6-15.6); WHITE BLOOD COUNT 12.7 K/mm3 (4.0-10.0)
[2020-09-17 22:31] LABS: INR 0.91 (0.83-1.09); PROTHROMBIN TIME (PATIENT) 11.1 SEC (9.7-13.0)
[2020-09-17] MEDS ORDERED: BUTORPHANOL TARTRATE 2 MG/ML VIAL ONE (22:31)
[2020-09-17] MEDS ORDERED: PROMETHAZINE HCL 25 MG/1 ML VIAL ONE (22:31)
[2020-09-17 22:33] LABS: POTASSIUM 3.4 mmol/L (3.5-5.1)
[2020-09-17 22:34] LABS: ACTIVATED PTT 25.5 SECONDS (25.2-36.5); CALCIUM 8.7 mg/dL (8.5-10.1)
[2020-09-17 22:35] LABS: BLOOD UREA NITROGEN 5.9 mg/dL (7-18)
[2020-09-17] MEDS ORDERED: BUTORPHANOL TARTRATE 2 MG/ML VIAL IVPB PRN (22:35)
[2020-09-17] MEDS ORDERED: PROMETHAZINE HCL 25 MG/1 ML VIAL IVPUSH ONE (22:35)
[2020-09-17 22:38] LABS: CREATININE 0.4 mg/dL (0.55-1.3)
[2020-09-17] MEDS ORDERED: ELECTROLYTE-148 SOLN 1,000 ML IV SCH (22:45)
[2020-09-17 23:44] LABS: HIV INTERPRETATION NEGATIVE (NEGATIVE)
[2020-09-18] MEDS ORDERED: FENTANYL/BUPIVACAINE/NS/PF - PCEA - 50 ML DISP.SYRIN EP ONE (00:05)
[2020-09-18] MEDS: FENTANYL/BUPIVACAINE/NS/PF - PCEA - 50 ML DISP.SYRIN EP SCH (00:40)
[2020-09-18] MEDS ORDERED: OXYTOCIN 20 UNITS in 0.9% NS 20 UNIT/1,000 ML INFUS.BAG IV ONE (00:55)
[2020-09-18] MEDS ORDERED: NALOXONE HCL 0.4 MG/ML VIAL IVPUSH PRN (01:06)
[2020-09-18] MEDS ORDERED: BISACODYL 10 MG SUPP.RECT PR PRN (02:23)
[2020-09-18] MEDS ORDERED: BENZOCAINE 28 GM HEMORRHOIDAL OINTMENT RC PRN (02:23)
[2020-09-18] MEDS ORDERED: METHYLERGONOVINE MALEATE 0.2 MG/1 ML AMP IM PRN (02:23)
[2020-09-18] MEDS ORDERED: WITCH HAZEL 50% (TUCKS) 40 PAD/JAR PAD TP PRN (02:23)
[2020-09-18] MEDS ORDERED: BENZOCAINE 20% 57 GM BOTTLE TP PRN (02:23)
[2020-09-18] MEDS ORDERED: OXYTOCIN 20 UNITS in 0.9% NS 20 UNIT/1,000 ML INFUS.BAG IV SCH (02:30)
[2020-09-18 03:03] LABS: CORD HCO3 21.3 mmHg (20-29); CORD PCO2 55.6 mmHg (30-78); CORD pH 7.202 (7.14-7.44)
[2020-09-18 03:06] LABS: CORD PCO2 58.1 mmHg (30-78); CORD pH 7.197 (7.14-7.44)
[2020-09-18] MEDS: ACETAMINOPHEN 325 MG TABLET (FP) PO PRN ×2 (08:01→14:58)
[2020-09-18] MEDS: IBUPROFEN 600 MG TABLET (FP) PO PRN ×2 (08:02→14:58)
[2020-09-18] MEDS: ACETAMINOPHEN/CAFFEINE/BUTALBITAL 1 TAB PO PRN (17:35)
[2020-09-19] MEDS: ACETAMINOPHEN/CAFFEINE/BUTALBITAL 1 TAB PO PRN ×3 (01:14→16:48)
[2020-09-19 09:13] LABS: BASO % 0.5 % (0-2.0); EOS % 0.7 % (0-4.5); HEMATOCRIT 22.4 % (32.4-45.2); HEMOGLOBIN 7.4 GM/dL (10.7-15.3); LYMPH % 23.4 % (8-40); MCH 28.9 pg (25.7-33.7); MCHC 32.9 g/dl (32.0-36.0); MEAN CELL VOLUME 87.9 fl (80-96); MEAN PLT VOLUME 10.2 fl (7.5-11.1); MONO % 6.5 % (3.8-10.2); NEUT % 68.9 % (42.8-82.8); PLATELET COUNT 184 K/MM3 (134-434); RBC 2.55 M/mm3 (3.60-5.2); RDW 14.3 % (11.6-15.6); WHITE BLOOD COUNT 11.9 K/mm3 (4.0-10.0)
[2020-09-19] MEDS ORDERED: DIPHTH,PERTUSS(ACELL),TET 0.5 ML DISP.SYRIN IM ONE (10:00)
[2020-09-19] MEDS: FERROUS SO4 325 MG TABLET (FP) PO SCH (21:12)
[2020-09-20] MEDS: FENTANYL/BUPIVACAINE/NS/PF - PCEA - 50 ML DISP.SYRIN EP SCH (07:18)
[2020-09-20] MEDS: FERROUS SO4 325 MG TABLET (FP) PO SCH (09:14)
[2020-09-20 12:15] VITALS: BP 99/63; PULSE 89; TEMP 98.8
== END 2020-09-20 12:22 | disposition home or self-care (01) | DRG 807 ==
LOC: JDEL 20:15 → JLDR 21:25 → J3W 09-18 04:56
PROVIDERS: ADMIT Obstetrics & Gynecology; ATTEND Obstetrics & Gynecology
PROC: 0KQM0ZZ Repair Perineum Muscle, Open Approach (ICD-10-PCS; principal; 2020-09-18)
PROC: 10E0XZZ Delivery of Products of Conception, External Approach (ICD-10-PCS; 2020-09-18)
PROC: 3E0R3GC Introduction of Other Therapeutic Substance into Spinal Canal, Percutaneous Approach (ICD-10-PCS; 2020-09-19)
DX: O69.81X0 Labor and delivery complicated by cord around neck, without compression, not applicable or unspecified (principal); Z37.0 Single live birth; O70.1 Second degree perineal laceration during delivery; Z3A.39 39 weeks gestation of pregnancy; O90.81 Anemia of the puerperium; O89.4 Spinal and epidural anesthesia-induced headache during the puerperium
CPT/HCPCS: 36415; 36600; 59409; 80048; 82803; 82962; 85025; 85610; 85730; 86780; 86850; 86900; 86901; 87389; 90715; C9803; U0003